=== PATIENT | female | born 1960 | race Caucasian/White ===

== ENCOUNTER 2017-02-01 13:54 | Emergency (ER) | payer BC ==
[~2017-02-01] VITALS: Ht 167.6 cm; Wt 70.3 kg
[~2017-02-01 13:54] MED LIST: AUGMENTIN 875875 MG PO; FIORICET 325 MG1 TAB PO; HYDROCODONE BIT1 T11 PO; MOTRIN800 MG PO; VIBRAMYCIN100 MG PO
[2017-02-01] MEDS ORDERED: ULTRAM50 MG PO (15:51)
[2017-02-01] MEDS ORDERED: ANAPROX DS550 MG PO (15:51)
== END 2017-02-01 15:58 | disposition home or self-care (01) ==
LOC: ED 13:54
DX: M79.672 Pain in left foot (principal); F17.200 Nicotine dependence, unspecified, uncomplicated; Z88.5 Allergy status to narcotic agent

== ENCOUNTER 2019-09-13 00:42 | Emergency (ER) | payer BC ==
[~2019-09-13] VITALS: Ht 170.1 cm; Wt 68.9 kg
[~2019-09-13 00:42] MED LIST changes: +ANAPROX DS550 MG PO; +ULTRAM50 MG PO
[2019-09-13] MEDS ORDERED: NORCO 5-325 TA1 EACH PO (02:38)
== END 2019-09-13 03:40 | disposition home or self-care (01) ==
LOC: ED 00:42
DX: S52.612A Displaced fracture of left ulna styloid process, initial encounter for closed fracture (principal); S52.592A Other fractures of lower end of left radius, initial encounter for closed fracture; Z88.5 Allergy status to narcotic agent; W01.0XXA Fall on same level from slipping, tripping and stumbling without subsequent striking against object, initial encounter; Y93.89 Activity, other specified; Y92.89 Other specified places as the place of occurrence of the external cause; Y99.9 Unspecified external cause status

== ENCOUNTER 2019-09-29 09:59 | Emergency (ER) | payer BC ==
[~2019-09-29] VITALS: Ht 167.6 cm; Wt 68.0 kg
[~2019-09-29 09:59] MED LIST changes: +NORCO 5-325 TA1 EACH PO
[2019-09-29] MEDS ORDERED: NORCO 5-325 TA1 EACH PO ×2 (11:08→11:19)
== END 2019-09-29 11:25 | disposition home or self-care (01) ==
LOC: ED 09:59
DX: S52.502D Unspecified fracture of the lower end of left radius, subsequent encounter for closed fracture with routine healing (principal); S52.612D Displaced fracture of left ulna styloid process, subsequent encounter for closed fracture with routine healing; M25.532 Pain in left wrist; F17.200 Nicotine dependence, unspecified, uncomplicated; Z46.89 Encounter for fitting and adjustment of other specified devices; Z88.5 Allergy status to narcotic agent; W18.09XD Striking against other object with subsequent fall, subsequent encounter